=== PATIENT | male | born 1955 | race Caucasian/White ===

== ENCOUNTER 2016-10-06 19:52 | Inpatient (IN) | payer BC ==
[~2016-10-06] VITALS: Ht 180.3 cm; Wt 102.5 kg
[2016-10-06] MEDS ORDERED: fentaNYL 100 MCG/2 ML VIAL IV STA ×4 (20:20→21:37)
[2016-10-06] MEDS ORDERED: PROMETHAZINE HCL INJ 12.5 MG in SODIUM CHLORIDE 25 ML IV ONE (20:20)
[2016-10-06] MEDS ORDERED: SODIUM CHLORIDE FLUSH 10 ML SYR IV PRN (20:30)
[2016-10-06] MEDS ORDERED: SODIUM CHLORIDE FLUSH 3 ML SYR IV ONE (20:30)
[2016-10-06 20:44] LABS: BASOPHILS % (AUTO) 0 % (0-2); EOSINOPHILS # (AUTO) 0.2 10^3uL; EOSINOPHILS % (AUTO) 1 % (0-4); LYMPHOCYTES # (AUTO) 2.8 X10^3; MEAN CORPUSCULAR HEMOGLOBIN 31.2 PG (26.0-34.0); MEAN CORPUSCULAR VOLUME 87 FL (80-100); MONOCYTES # (AUTO) 1.1 X10^3; MONOCYTES % (AUTO) 9 % (3-11); NEUTROPHILS # (AUTO) 7.9 X10^3; NEUTROPHILS % (AUTO) 66 % (51-67); PLATELET COUNT 192 10^3uL (150-450); WHITE BLOOD COUNT 12.04 10^3uL (4.0-11.0)
[2016-10-06 20:49] LABS: ALBUMIN 4.5 g/dL (3.4-5.0); ANION GAP 16.6 MEQ/L (3-15); CALCULATED IONIZED CALCIUM 3.9 mg/dL (3.8-4.6); TOTAL PROTEIN 7.9 g/dL (6.4-8.5)
[2016-10-06 20:50] LABS: MEAN CORPUSCULAR HGB CONC 35.6 g/dL (31.0-37.0)
--- NOTE | 2016-10-06 21:34 | NUR ---
pt states that the pain med has not helped at all, and the pain med that was given earlier also did not work.
--- NOTE | 2016-10-06 22:25 | NUR ---
pt given more pain meds per Dr. penaloza, pt states that so far he has had no pain relief at all with any of the pain meds he has received. Pt attempted to lay on his side but this appeared to cause him more pain. Pt was able to give a ua sample that was taken to the lab.
[2016-10-06] MEDS ORDERED: fentaNYL 100 MCG/2 ML VIAL IV ONE (22:30)
--- NOTE | 2016-10-06 22:43 | NUR ---
Checked on pt, he is lying on his right side, states that "he seems to be resting, he moans at times", explained that Dr. Summers will be looking at pt's ua results and deciding if he wants to do a CT or not, or further treatment.
[2016-10-06 22:45] LABS: COLOR,URINE Amber; GLUCOSE, URINE (UA) Trace (Negative); LEUKOCYTE ESTERASE ,URINE Negative (Negative); PH,URINE 5.5 (5.0 - 8.0)
--- NOTE | 2016-10-06 22:47 | NUR ---
IV pump beeping, RN went in to take care of the pump, pt then awoke, and stated the to RN "you have to do something, and starts moaning" RN explains that she will speak to Dr. Summers to let him know that his pain is no better at this time.
[2016-10-06] MEDS ORDERED: LORazepam 2 MG/ML (ATIVAN) 1 ML VIAL IV STA (22:48)
[2016-10-06 22:50] LABS: BILIRUBIN,URINE 1+ (Negative); CLARITY,URINE Slightly Cloudy; RBC,URINE 0-2 /HPF; URINE CENTRIFUGED VOLUME 12 mL
[2016-10-06] MEDS ORDERED: HYDROmorphone 2 MG/ML (DILAUDID) 1 ML SYRINGE IV ONE (22:50)
--- NOTE | 2016-10-06 22:55 | NUR ---
Gave pt more pain medication and some Ativan, per Dr. Summers's orders, pt continues to moan and complain of pain, he states that it hurts to breathe
[2016-10-07] VITALS (11 sets, daily range): BP systolic 108–145; BP diastolic 61–94
--- NOTE | 2016-10-07 00:05 | NUR ---
Went in to check on pt he states that his pain is coming back, and he starts moaning in pain. O2 placed on pt, noted his sats are dropping at times. Dr. Summers notified
--- NOTE | 2016-10-07 00:33 | NUR ---
pt uses the urinal at the bedside, he was able to set on the edge of the bed but complains of a lot of pain with moving. Dr. Summers notified.
--- NOTE | 2016-10-07 00:43 | NUR ---
CALL TO DR MCGUIRE PER DR GOSS REQUEST.
[2016-10-07] MEDS ORDERED: HYDROmorphone 2 MG/ML (DILAUDID) 1 ML SYRINGE IV ONE (00:45)
--- NOTE | 2016-10-07 00:52 | NUR ---
ESME TEXT SENT TO HOSPITALIST
--- NOTE | 2016-10-07 00:55 | NUR ---
Dr Summers on phone with hospitalist at this time, pt was given pain meds IV is at the bedside
[2016-10-07] MEDS ORDERED: ONDANSETRON 2 MG/ML (Z0FRAN) 2 ML VIAL IV PRN ×2 (01:05→07:05)
[2016-10-07] MEDS ORDERED: NON-FORMULARY MEDICATION 1 EA EA (Flecainide Acetate 100 MG) PO SCH (01:05)
[2016-10-07] MEDS ORDERED: DEXTROSE ORAL GEL (GLUTOSE 40%) 15 GM TUBE PO PRN ×2 (01:05→04:05)
[2016-10-07] MEDS ORDERED: GLUCAGON EMERGENCY 1 MG/KIT IM PRN (01:05)
[2016-10-07] MEDS ORDERED: DILTIAZEM HCL PO SCH (01:05)
[2016-10-07] MEDS ORDERED: HYDROmorphone 1 MG/ML (DILAUDID) SYRINGE IV PRN ×2 (01:05→07:55)
[2016-10-07] MEDS ORDERED: DEXTROSE 50% 25 GM/50 ML SYRINGE IV PRN (01:05)
--- NOTE | 2016-10-07 01:55 | NUR ---
Pt admitted to 319 via cart from ED. Pt moaning, holding abdomen, rates pain "off the charts." Is able to ambulate to bed with assist from staff. On 2L oxygen. at bedside, answers medical history questions. See admission database for further information.
--- NOTE | 2016-10-07 02:25 | NUR ---
Dr Flowers assesses pt via remote monitoring. Pt very drowsy d/t narcotic administration. answers questions for physician.
[2016-10-07] MEDS ORDERED: ACETAMINOPHEN 500 MG TAB (TYLENOL) PO PRN (02:35)
--- NOTE | 2016-10-07 03:00 | NUR ---
Pt awake, stands to side of bed to use urinal. C/o increasing pain. pvc monitor calls to say that patient's heart rate elevated, possible SVT. RT Esdras called for stat EKG.
--- NOTE | 2016-10-07 03:16 | NUR ---
EKG done. Noted that pt is in atrial flutter. EKG faxed to Dr Flowers.
--- NOTE | 2016-10-07 03:30 | NUR ---
Dr Flowers calls with orders to transfer pt to ICU and draw AM labs stat. Vital signs as follows: BP 145/94, temp 100.9, HR 134, RR 24, and o2 sat 96% on 3L.
[2016-10-07] MEDS ORDERED: HEPARIN 5000 UNIT/0.5 ML SYRINGE IV ONE (03:40)
[2016-10-07] MEDS ORDERED: HEPARIN DRIP 25000 UNIT/250 ML 250 ML IV SCH (03:40)
[2016-10-07 03:57] LABS: MEAN CORPUSCULAR HEMOGLOBIN 31.1 PG (26.0-34.0); MEAN CORPUSCULAR HGB CONC 35.4 g/dL (31.0-37.0); MEAN CORPUSCULAR VOLUME 88 FL (80-100); MEAN PLATELET VOLUME 9.5 FL (6.0-9.5); PLATELET COUNT 141 10^3uL (150-450); WHITE BLOOD COUNT 12.29 10^3uL (4.0-11.0)
[2016-10-07 04:02] LABS: ALBUMIN 3.7 g/dL (3.4-5.0); ANION GAP 14.6 MEQ/L (3-15); CALCULATED IONIZED CALCIUM 3.9 mg/dL (3.8-4.6); TOTAL PROTEIN 6.8 g/dL (6.4-8.5)
[2016-10-07] MEDS ORDERED: meTOprolol 5 MG/5 ML (LOPRESSOR) VIAL IV PRN ×2 (04:10→07:54)
--- NOTE | 2016-10-07 04:10 | NUR ---
Pt transferred to [facility] via bed. Heart rate remains tachy, irregular. Lactic acid 1.1. Dr Flowers aware of result. Report given to Sandra Mensah RN.
--- NOTE | 2016-10-07 04:10 | NUR ---
Pt admitted to room 343 from 3rd floor for uncontrolled Afib, rate 130's - 150's. Pt admitted to 3rd floor for abdominal pain. Pt is NPO. Reports pain at 9-10/10, moans quite a bit. Requested Metoprolol for rate control from Dr. Flowers, nw order received.
[2016-10-07 04:12] LABS: BAND NEUTROPHILS % 2 % (0-6); EOSINOPHILS % 2 % (0-4); LYMPHOCYTES # 0.9 #; MONOCYTES # 0.1 #; MONOCYTES % 1 % (3-11); RBC MORPH NORMAL (NORMAL); SEGMENTED NEUTROPHILS % 88 % (51-67); TOTAL CELLS COUNTED 100; TOXIC GRANULATION/VACUOLAZATIO MODERATE
[2016-10-07] MEDS ORDERED: meTOprolol 5 MG/5 ML (LOPRESSOR) VIAL IV ONE (04:13)
[2016-10-07] MEDS ORDERED: HYDROmorphone 2 MG/ML (DILAUDID) 1 ML SYRINGE ONE (04:26)
[2016-10-07] MEDS: HYDROmorphone 1 MG/ML (DILAUDID) SYRINGE IV PRN ×2 (04:35→07:23)
--- NOTE | 2016-10-07 05:00 | NUR ---
PTT lab values received. Heparin drip initiated with bolus of 5900 units, verified with Martha Landeros RN then started at a rate of 3.5mls/hr. Will continue to monitor.
--- NOTE | 2016-10-07 06:39 | NUR ---
Gave update of pt's condition to Dr. Flowers. Received new order for Toradol.
[2016-10-07] MEDS ORDERED: ACETAMINOPHEN 650 MG SUPP (TYLENOL) PR PRN (06:40)
--- NOTE | 2016-10-07 07:25 | NUR ---
Dilaudid 1 mg IV given for c/o pain 04/28. Pt restless. Assessments completed at this time. Monitor on showing Afib in the 130-140's. Martha ROQUE present and new orders received. Lab to do troponin on blood in the lab.
[2016-10-07] MEDS ORDERED: INSULIN LISPRO 1 UNIT/0.01 ML (HUMALOG) DOSE SC SCH ×2 (07:30)
--- NOTE | 2016-10-07 07:43 | NUR ---
NUTRITION ASSESSMENT Level 1 Patient: Giovanny Aquino Age/Sex: 61/M Date Screened: 10-07-16 Weight: 225.5#/102.5 kg Height: 71 inches Primary Diagnosis: abdominal pain Diet Order: NPO Relevant labs: glucose 214 Food allergies: N Nutrition Assessment Criteria Age over 80: N Body Mass Index (BMI) under 19: N Admission Screening Indicates Risk? 3 points Moderate/High Risk Diagnosis: 3 points TPN or PPN: N NPO or clear liquid diet: Yes Serum Glucose <70 or >180: 3 points Hgb A1c >6.7: N/A Total: 9 points Risk Screen: __ Patient at low nutritional risk based on available data; reevaluate in 5-7 days __ Patient at moderate nutritional risk based on available data; reevaluate in 3-5 days _X_ Patient at high nutritional risk; complete Nutrition Assessment within 48 hours of admission.
--- NOTE | 2016-10-07 08:00 | NUR ---
Dr. Bedoya present to examine pt.
[2016-10-07] MEDS ORDERED: DIGOXIN 0.25 MG/ML (LANOXIN) 2 ML AMP IV ONE (08:10)
--- NOTE | 2016-10-07 08:15 | NUR ---
Heparin gtt increased to 12.5ml/hr. per protocol.
[2016-10-07] MEDS ORDERED: CIPROFLOXACIN 400 MG/200 ML 200 ML IV SCH (08:20)
[2016-10-07] MEDS ORDERED: SODIUM CHLORIDE FLUSH 10 ML ONE (08:21)
--- NOTE | 2016-10-07 08:25 | NUR ---
Lanoxin 0.5mg IV given slowly for elevated pulse rate. Pt continues to be sleepy, but arouses only when talked to and then only mumbles an answer.
[2016-10-07] MEDS ORDERED: HEPARIN 1000 UNIT/ML 2 ML VIAL IV PRN ×2 (08:30)
[2016-10-07] MEDS ORDERED: PANTOPRAZOLE IV 40 MG in SODIUM CHLORIDE FLUSH 10 ML IV SCH ×4 (09:00)
[2016-10-07] MEDS ORDERED: CIPROFLOXACIN 400 MG/200 ML 200 ML IV ONE (09:00)
[2016-10-07] MEDS ORDERED: NS FLUSH 3 ML DAILY IV SCH (09:00)
[2016-10-07] MEDS ORDERED: CARVEDILOL 6.25 MG (COREG) TAB PO SCH (09:00)
[2016-10-07] MEDS ORDERED: NS FLUSH 3 ML PRN IV (09:00)
--- NOTE | 2016-10-07 09:10 | NUR ---
Dr. Sheikh present to examine pt and plans to transfer pt made. New orders received. Stat blood cultures drawn by lab.
--- NOTE | 2016-10-07 09:40 | NUR ---
NUTRITION ASSESSMENT Level II Patient: Giovanny Aquino Age/Sex: 61/M Date Assessed: 10-07-16 ASSESSMENT Pertinent History: Patient admitted with abdominal pain and screened at high nutritional risk secondary to diagnosis and elevated blood sugar. PMHx includes diabetes, chronic back pain, a fib, sleep apnea, HTN, dyslipidemia, hepatitis C and chronic constipation. He has had nausea with this acute illness but no vomiting. Pt. lives at home with his . Weight history includes: 214# in January,, 204# in 2015, and 210.1# on admission yesterday. Since admission he has gained 15.4#, if charting is accurate. Meds/Nutrition: Protonix, Humalog, NS Weight: 225.5#/102.5 kg Height: 71 inches Body Mass Index (BMI): 31.5 [place] Body Weight : 172#/78.1 kg % IBW: 131% GASTROINTESTINAL Appetite: N/A Diet Order: NPO Unintentional loss of >10 lbs. in 3 months: N Difficult to chew/swallow: N Diabetes: Yes Relevant Labs: glucose 214 Calculations for Nutritional Assessment Estimated calorie needs: 22-25 kcals/kg = 2,240-2,550 kcals Estimated protein needs: 1.0-1.2 g/kg ABW = 84-101 g./day DIAGNOSIS 1. Nutrition Diagnosis: (acute) inadequate intake related to altered GI function as evidenced by severe abdominal pain of uncertain etiology. NUTRITIONAL INTERVENTION Goal: Patient will receive adequate nutrition to meet his needs within an appropriate time-frame. Plan: Will follow closely with physician and surgeon re: source of abdominal pain and plan of care. Nutrition intervention depends on medical plan of carewill monitor length of time NPO. Consider getting a Hgb A1c to better assess diabetes management. MONITORING & EVALUATION __ Monitor patients menu selections __ Monitor patients food intake per nursing notes _X_ Monitor NPO/clear liquid days __ Monitor lab values __ Monitor I&O __ Other
--- NOTE | 2016-10-07 10:10 | NUR ---
Report called to Manjit Solis RN in [place].
--- NOTE | 2016-10-07 10:55 | NUR ---
Pt left unit per stretcher to be transferred to [facility]. Dilaudid 1 mg given IV once pt was transferred to stretcher. IVs of NS at 125cc/hr, Heparin gtt at 12.5u/hr, and Cipro at 100cc/hr continues to infused. O2 at 3L/NC on.
[2016-10-07] MEDS ORDERED: SODIUM CHLORIDE FLUSH 10 ML SYR IV PRN ×2 (20:30)
[2016-10-08] MEDS ORDERED: GLUCAGON EMERGENCY 1 MG/KIT IM PRN (01:05)
[2016-10-08] MEDS ORDERED: DEXTROSE 50% 25 GM/50 ML SYRINGE IV PRN (01:05)
== END 2016-10-07 10:55 | disposition short-term general hospital (02) | DRG 871 ==
LOC: ED 19:55 → MED/SURG 10-07 01:05 → ICU 10-07 04:14
PROVIDERS: ADMIT Emergency Medicine; ATTEND Emergency Medicine
DX: A41.9 Sepsis, unspecified organism (principal); K55.031 Focal (segmental) acute (reversible) ischemia of large intestine; I48.0 Paroxysmal atrial fibrillation; E86.0 Dehydration; E11.22 Type 2 diabetes mellitus with diabetic chronic kidney disease; I12.9 Hypertensive chronic kidney disease with stage 1 through stage 4 chronic kidney disease, or unspecified chronic kidney disease; N18.3 Chronic kidney disease, stage 3 (moderate); B19.20 Unspecified viral hepatitis C without hepatic coma; K59.00 Constipation, unspecified; G89.29 Other chronic pain; Z87.891 Personal history of nicotine dependence
CPT/HCPCS: 36415; 74022; 74176; 80053; 81003; 81015; 83605; 83690; 84484; 85025; 85610; 85730; 87040; 93005; 96361; 96374; 96375; 96376; 99284

== ENCOUNTER → 2016-10-07 | Outpatient (CLI) | payer BC | LOC: EMS 11:00 | PROVIDERS: ATTEND Family Medicine | DX: I48.91 Unspecified atrial fibrillation (principal); A41.9 Sepsis, unspecified organism ==